=== PATIENT | female | born 1970 | race Caucasian/White ===

== ENCOUNTER 2016-07-27 13:32 | Emergency (ER) | payer SELFPAY ==
[2016-07-27] MEDS ORDERED: ORPHENADRINE 60 MG/2 ML AMP ONE (15:08)
[2016-07-27] MEDS ORDERED: SODIUM CHLORIDE 0.9% 1,000 ML ONE (15:09)
[2016-07-27] MEDS ORDERED: KETOROLAC 30 MG/ML VIAL ONE (15:09)
== END 2016-07-27 17:09 | disposition home or self-care (01) ==
LOC: ER 13:32
DX: M79.1 Myalgia (principal); E11.65 Type 2 diabetes mellitus with hyperglycemia
CPT/HCPCS: 36415; 74000; 80053; 81003; 82947; 85025; 87088; 96361; 96374; 96375